=== PATIENT | male | born 1950 | race Caucasian/White ===

== ENCOUNTER 2018-06-23 18:10 | Inpatient (IN) | payer OTHER ==
[~2018-06-23] VITALS: Ht 188 cm; Wt 86.9 kg
[2018-06-23 18:26] VITALS: Ht 188 cm; Wt 86.9 kg
[2018-06-23 19:10] LABS: PLATELET COUNT 229 x10^3mcL (130-400); RED CELL DISTRIBUTION WIDTH 13.6 % (11.5-14.5)
[2018-06-23 19:24] LABS: BAND NEUTROPHIL 13 % (0-10); BASOPHIL 0 % (0-2); MONOCYTE 3 % (0-7); SEGMENTED NEUTROPHILS 71 % (37-75)
[2018-06-23 19:25] LABS: ovalocyte/elliptocyte 1+; rbc morphology (normal/abnorm) ABNORMAL (NORMAL); tear drop cell (dacryocyte) 1+
[2018-06-23 19:26] LABS: PLATELET MORPHOLOGY PLATELETS NORMAL
[2018-06-23 19:29] LABS: CALCIUM 8.9 mg/dL (8.5-10.1); CREATININE SERUM 1.3 mg/dL (0.7-1.3); POTASSIUM SERUM 4.1 mmol/L (3.5-5.1)
[2018-06-23 19:36] LABS: ALBUMIN 4.3 g/dL (3.4-5.0); BILIRUBIN TOTAL 0.65 mg/dL (0.20-1.00); TOTAL PROTEIN, SERUM 8.8 g/dL (6.4-8.2)
[2018-06-23] MEDS ORDERED: LOSARTAN POTASS50 M1 PO (20:51)
[2018-06-23] MEDS ORDERED: PROTONIX20 MG PO (20:52)
[2018-06-23 20:53] LABS: T3 TOTAL 1.16 ng/mL
[2018-06-23 21:00] LABS: CHOLESTEROL/HDL RATIO 2.3
[2018-06-23 21:08] LABS: UA SPECIFIC GRAVITY >=1.030 (1.005-1.035); microscopic required? YES; urine erythrocyte 1+ (NEGATIVE)
[2018-06-23 21:34] VITALS: BP 124/65
[2018-06-23 21:35] LABS: FREE T4 1.08 ng/dL (0.76-1.46); FREE THYROXINE INDEX 3.1 ug/dL (1.4-4.5); T4(THYROXINE) 9.4 ug/dL (4.7-13.3)
[2018-06-23 22:10] LABS: AMPHETAMINE QUAL UR NONE DETECTED (See below)
[2018-06-24 04:57] VITALS: BP 106/67
[2018-06-24 06:14] LABS: CALCIUM 8.8 mg/dL (8.5-10.1); CARBON DIOXIDE 27.2 mmol/L (21-32); CHLORIDE SERUM 108 mmol/L (98-107); CREATININE SERUM 1.1 mg/dL (0.7-1.3); GFR1 > 60 mL/min; GLUCOSE SERUM 102 mg/dL (74-106); POTASSIUM SERUM 4.5 mmol/L (3.5-5.1); SODIUM SERUM 144 mmol/L (136-145)
[2018-06-24 07:27] LABS: BASOPHIL % 0.8 % (0-2); PLATELET COUNT 256 x10^3mcL (130-400); RED CELL DISTRIBUTION WIDTH 13.6 % (11.5-14.5)
[2018-06-24 09:19] VITALS: BP 131/68
[2018-06-24 13:11] VITALS: BP 131/68
== END 2018-06-24 14:02 | disposition home or self-care (01) | DRG 917 ==
LOC: ED 18:10 → MU 20:24
PROVIDERS: Emergency Medicine; Internal Medicine
DX: T38.3X1A Poisoning by insulin and oral hypoglycemic [antidiabetic] drugs, accidental (unintentional), initial encounter (principal); N17.0 Acute kidney failure with tubular necrosis; E16.0 Drug-induced hypoglycemia without coma; K21.9 Gastro-esophageal reflux disease without esophagitis; D72.829 Elevated white blood cell count, unspecified; Z68.25 Body mass index [BMI] 25.0-25.9, adult
CPT/HCPCS: 82962; 83880; 84439; 90658; J3490; Q0092